=== PATIENT | male | born 1980 ===

== ENCOUNTER 2016-12-13 02:30 | Emergency (ER) | payer BC ==
[2016-12-13] MEDS ORDERED: Alum Hydrox/Mag Hydrox/Simeth 15 ML, Metoclopramide 5 MG, Lidocaine 2% 5 ML PO ONE ×3 (02:42)
--- NOTE | 2016-12-13 02:44 | EDM.PDOC ---
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 Review of systems: As per history of present illness and below otherwise all systems reviewed and negative. Past medical history: As per history of present illness and as reviewed below otherwise noncontributory. Surgical history: As per history of present illness and as reviewed below otherwise noncontributory. Social history: No reported history of drug or alcohol abuse. Family history: As per history of present illness and as reviewed below otherwise noncontributory. Physical exam: HEENT: Atraumatic, normocephalic, pupils reactive, negative for conjunctival pallor or scleral icterus, mucous membranes moist, throat clear, neck supple, nontender, trachea midline. Lungs: Clear to auscultation, breath sounds equal bilaterally, chest nontender. Heart: S1S2, regular, negative for clicks, rubs, or JVD. Abdomen: Soft, nondistended, nontender. Negative for masses or hepatosplenomegaly. Negative for costovertebral tenderness. Pelvis: Stable nontender. Genitourinary: Deferred. Rectal: Deferred. Extremities: Atraumatic, negative for cords or calf pain. Neurovascular unremarkable. Neuro: Awake, alert, oriented. Cranial nerves II through XII unremarkable. Cerebellum unremarkable. Motor and sensory unremarkable throughout. Exam nonfocal. Diagnostics: CBC CMP PT/INR chest x-ray EKG Therapeutics: GI cocktail Protonix 40 mg by mouth Impression: #1 epigastric pain #2 back pain #3 history of avascular necrosis right hip Definitive disposition and diagnosis as appropriate pending reevaluation and review of above. Middle Back Pain Score (Numeric/FACES): 6 ED ROS GENERAL - Review of Systems Review Of Systems: ROS reveals no pertinent complaints other than HPI. ED EXAM, GENERAL - Physical Exam Exam: See Below (See dictation) Course - Vital Signs Last Recorded V/S: Last Vital Signs Temp 35.9 C 12/13/16 02:32 Pulse 99 12/13/16 02:32 Resp 20 12/13/16 02:32 BP 151/94 H 12/13/16 02:32 Pulse Ox 99 12/13/16 02:32 Departure - Departure Time of Disposition: 02:42 Disposition: Home, Self-Care 01 Condition: Good Clinical Impression: Epigastric abdominal pain, Back pain - Discharge Information Referrals: PCP,None [Primary Care Provider] - Additional Instructions: The following information is given to patients seen in the emergency department who are being discharged to home. This information is to outline your options for follow-up care. We provide all patients seen in our emergency department with a follow-up referral. The need for follow-up, as well as the timing and circumstances, are variable depending upon the specifics of your emergency department visit. If you don't have a primary care physician on staff, we will provide you with a referral. We always advise you to contact your personal physician following an emergency department visit to inform them of the circumstance of the visit and for follow-up with them and/or the need for any referrals to a consulting specialist. The emergency department will also refer you to a specialist when appropriate. This referral assures that you have the opportunity for followup care with a specialist. All of these measure are taken in an effort to provide you with optimal care, which includes your followup. Under all circumstances we always encourage you to contact your private physician who remains a resource for coordinating your care. When calling for followup care, please make the office aware that this follow-up is from your recent emergency room visit. If for any reason you are refused follow-up, please contact the [facility] emergency department at and asked to speak to the emergency department charge nurse. Follow-up primary medical doctor 1-2 days Protonix as prescribed return as needed as discussed
[2016-12-13] MEDS ORDERED: Pantoprazole 40 MG Tab.CR PO SCH (02:45)
[2016-12-13 03:46] VITALS: BP 139/90
--- NOTE | 2016-12-13 09:55 | CR ---
EXAM DATE: 12/13/16 PATIENT'S AGE: 36 Patient: KWADWO LORENZO Facility: [place], [place] Site . Site : [id number] Study: XRay Chest [id number]/[id number] 3:14:36 AM Ordering Physician: Rowdy Boo Final Report: INDICATION: EPIGASTRIC PAIN MID BACK PAIN TECHNIQUE: Chest radiograph 1 view COMPARISON: None FINDINGS: The study is moderately limited by body habitus. Cardiovascular and mediastinum: The cardiac silhouette is normal in appearance and size. Mediastinum is within normal limits. Lungs and pleural space: Both lungs are unremarkable in appearance. No sign of pleural effusion. No pneumothorax is seen. Bones and soft tissues: No significant findings. IMPRESSION: 1. No acute cardiopulmonary disease seen. Dictated by: Darren Espinal MD @ 12/13/2016 03:17:10 (Electronic Signature) Report Signed by Proxy. SHEY
== END 2016-12-13 03:45 | disposition home or self-care (01) ==
LOC: MW.ED 02:30
DX: R10.13 Epigastric pain (principal); M54.6 Pain in thoracic spine; Z87.39 Personal history of other diseases of the musculoskeletal system and connective tissue
CPT/HCPCS: 36415; 71010; 80053; 82553; 83690; 84484; 85025; 85610; 93005; 99284; A9270

== ENCOUNTER 2016-12-26 08:00 | Inpatient (IN) | payer BC ==
[2016-12-26] MEDS ORDERED: Lidocaine 2% 5 ML SDV ONE ×3 (09:00→11:45)
[2016-12-26] MEDS ORDERED: Propofol 200 MG/20 ML SDV ONE ×2 (09:00→09:24)
[2016-12-26] MEDS ORDERED: fentaNYL 100 MCG/2 ML SDV ONE ×2 (09:24→13:28)
[2016-12-26] MEDS ORDERED: Midazolam 1 MG/ML 2 ML SDV ONE (09:24)
[2016-12-26] MEDS ORDERED: Succinylcholine/Normal Saline 200 MG/10 ML Syringe ONE (09:31)
[2016-12-26] MEDS ORDERED: Rocuronium 10 MG/ML 10 ML Syringe ONE (09:31)
[2016-12-26] MEDS ORDERED: Ondansetron 4 MG/2 ML SDV ONE (09:31)
[2016-12-26] MEDS ORDERED: Neostigmine Methylsulfate 1 MG/ML 5 ML Syringe ONE (09:31)
[2016-12-26] MEDS ORDERED: ePHEDrine 50 MG/ML SDV ONE (09:40)
[2016-12-26] MEDS ORDERED: ceFAZolin 2 GM in Premix Bag 1 BAG IV ONE (12:00)
--- NOTE | 2016-12-26 12:09 | PCM.PREANE ---
Preanesthetic Assessment - Procedure Proposed Procedure: Right anterior hip arthroplasty due to AVN - Anesthesia/Transfusion/Family Hx Anesthesia History: Prior Anesthesia Without Reaction Family History of Anesthesia Reaction: No Transfusion History: No Prior Transfusion(s) Intubation History: Unknown - Review of Systems General: No Symptoms, Other (obesity) Pulmonary: No Symptoms, Other (possible sleep apnea) Cardiovascular: No Symptoms, Other (PVCs on prior exams) Gastrointestinal: Other (GERD - uses omprozole) Neurological: Gait Disturbance (due to right hip pain) Other: Reports: None - Physical Assessment NPO Status Date: 12/25/16 NPO Status Time: 23:00 Height: 6 ft 6 in Weight: 370 lb ASA Class: 3 Mental Status: Alert & Oriented x3 Airway Class: Mallampati = 1 Dentition: Reports: Normal Dentition ROM/Head Extension: Full Lungs: Clear to Auscultation, Normal Respiratory Effort Cardiovascular: Regular Rate (by right pulse), Regular Rhythm, No Murmurs - Allergies Allergies/Adverse Reactions: Allergies Allergy/AdvReac Type Severity Reaction Status Date / Time morphine Allergy lowers BP Verified 12/24/16 08:06 - Blood Blood Available: Yes Product(s) Available: PRBC (T and S) - Acknowledgements Anesthesia Type Planned: General Anesthesia (possible due to OAD), Spinal (w sedation) Pt an Appropriate Candidate for the Planned Anesthesia: Yes Alternatives and Risks of Anesthesia Discussed w Pt/Guardian: Yes Pt/Guardian Understands and Agrees with Anesthesia Plan: Yes PreAnesthesia Questionnaire Cardiovascular History: Reports: Arrhythmia Gastrointestinal History: Reports: Other (See Below) Other Gastrointestinal History: hx epigastric discomfort caused from taking diclofenac, taking omeprazole for this which has taken care of it Genitourinary History: Reports: Other (See Below) Other Genitourinary History: hematuria Musculoskeletal History: Reports: Other (See Below) Other Musculoskeletal History: avascular necrosis of hip Endocrine/Metabolic History: Reports: Obesity/BMI 30+ - Past Surgical History HEENT Surgical History: Reports: Other (See Below) Other HEENT Surgeries/Procedures: ear surgery - SUBSTANCE USE Smoking Status *Q: Never Smoker Tobacco Use Within Last Twelve Months: No Second Hand Smoke Exposure: No Recreational Drug Use History: No - HOME MEDS Home Medications: Home Meds Acetaminophen with Codeine [Tylenol with Codeine #3 Tablet] 1 tab PO TID PRN 03/01 [History] Omeprazole 20 mg PO DAILY 12/24/16 [History] - CURRENT (IN HOUSE) MEDS Current Meds: Current Medications Cefazolin Sodium/Dextrose 2 gm (/ Premix) 50 mls @ 50 mls/hr IV ONETIME ONE Stop: 12/26/16 12:59 Lactated Ringer's (Ringers, Lactated) 1,000 mls @ 100 mls/hr IV ASDIRECTED KESHAV Discontinued Medications Ephedrine Sulfate (Ephedrine Sulfate) Confirm Administered Dose 100 mg .ROUTE .STK-MED ONE Stop: 12/26/16 09:41 Fentanyl (Sublimaze) Confirm Administered Dose 300 mcg .ROUTE .STK-MED ONE Stop: 12/26/16 09:25 Glycopyrrolate () Confirm Administered Dose 1 mg .ROUTE .STK-MED ONE Stop: 12/26/16 09:32 Lidocaine (Xylocaine-Mpf 2%) Confirm Administered Dose 5 ml .ROUTE .STK-MED ONE Stop: 12/26/16 09:01 Lidocaine (Xylocaine-Mpf 2%) Confirm Administered Dose 10 ml .ROUTE .STK-MED ONE Stop: 12/26/16 09:25 Lidocaine (Xylocaine-Mpf 2%) Confirm Administered Dose 5 ml .ROUTE .STK-MED ONE Stop: 12/26/16 11:46 Midazolam HCl (Versed 1 Mg/Ml) Confirm Administered Dose 2 mg .ROUTE .STK-MED ONE Stop: 12/26/16 09:25 Neostigmine Methylsulfate (Neostigmine) Confirm Administered Dose 5 mg .ROUTE .STK-MED ONE Stop: 12/26/16 09:32 Ondansetron HCl (Zofran) Confirm Administered Dose 8 mg .ROUTE .STK-MED ONE Stop: 12/26/16 09:32 Propofol (Diprivan 20 Ml) Confirm Administered Dose 200 mg .ROUTE .STK-MED ONE Stop: 12/26/16 09:01 Propofol (Diprivan 20 Ml) Confirm Administered Dose 400 mg .ROUTE .STK-MED ONE Stop: 12/26/16 09:25 Rocuronium Tunas (Zemuron) Confirm Administered Dose 100 mg .ROUTE .STK-MED ONE Stop: 12/26/16 09:32 Succinylcholine Chloride (Succinylcholine In Ns Pf) Confirm Administered Dose 200 mg .ROUTE .STK-MED ONE Stop: 12/26/16 09:32 Tranexamic Acid (Cyklokapron) 2,000 mg IV ONETIME ONE Stop: 12/26/16 12:01 Tranexamic Acid (Cyklokapron) Confirm Administered Dose 1,000 mg .ROUTE .STK- MED ONE Stop: 12/26/16 10:58
--- NOTE | 2016-12-26 14:47 | PCM.OPNOTE ---
- General Post-Op/Procedure Note Date of Surgery/Procedure: 12/26/16 Operative Procedure(s): right anterior total hip arthroplasty Findings: femoral head collapse Pre Op Diagnosis: right hip avascular necrosis Post-Op Diagnosis: same Anesthesia Technique: General ET Tube, Spinal Primary Surgeon: Josiah Madrid Mai Pathology: femoral head EBL in mLs: 600 Complications: none Condition: Good
[2016-12-26] MEDS ORDERED: Docusate Sodium 100 MG Cap PO PRN (14:48)
[2016-12-26] MEDS ORDERED: Ondansetron 4 MG/2 ML SDV IVPUSH PRN (14:48)
[2016-12-26] MEDS ORDERED: ceFAZolin 2 GM in Premix Bag 1 BAG IV SCH (15:00)
[2016-12-26] MEDS: fentaNYL 100 MCG/2 ML SDV IVPUSH PRN ×2 (15:09→15:14)
--- NOTE | 2016-12-26 15:27 | PCM.POSTAN ---
POST ANESTHESIA ASSESSMENT - MENTAL STATUS Mental Status: Alert, Oriented - VITAL SIGNS Pulse Rate: 58 SaO2: 96 Resp Rate: 18 Blood Pressure: 142/93 Temperature: 36.5 F - RESPIRATORY Respiratory Status: Respiratory Rate WNL, Airway Patent, O2 Saturation Stable, Supplemental Oxygen - CARDIOVASCULAR CV Status: Pulse Rate WNL, Blood Pressure Stable - GASTROINTESTINAL GI Status: No Symptoms - PAIN Pain Score: 3 - POST OP HYDRATION Hydration Status: Adequate & Stable (ok to discharge from PACU)
[2016-12-26] MEDS: HYDROmorphone 2 MG/ML Syringe IVPUSH PRN ×2 (16:10→20:24)
[2016-12-26] MEDS: Lactated Ringers 1,000 ML IV SCH (16:15)
--- NOTE | 2016-12-26 16:28 | CR ---
EXAMINATION: Right hip HISTORY: Total hip arthroplasty COMPARISON: 12/04/2016 TECHNIQUE: 3 fluoroscopic images provided FINDINGS/IMPRESSION: Operative control films demonstrate placement of a right total hip hardware in g ood position and alignment.
[2016-12-26] MEDS: ceFAZolin 2 GM in Premix Bag 1 BAG IV SCH (20:01)
[2016-12-26] MEDS: Aspirin 325 MG Tab.EC PO SCH (20:25)
--- NOTE | 2016-12-26 20:54 | OR ---
SURGEON: Jsoiah Daley MD DATE OF PROCEDURE: 12/26/2016 PREOPERATIVE DIAGNOSIS: Right hip avascular necrosis with collapse. POSTOPERATIVE DIAGNOSIS: Right hip avascular necrosis with collapse. OPERATIONS PERFORMED: Right anterior total hip arthroplasty. ANESTHESIA: Spinal and general. COMPLICATIONS: None. ESTIMATED BLOOD LOSS: 600 mL. SPECIMENS: Femoral head. IMPLANTS: Yaron Continuum trabecular metal shell with cluster holes, 64 mm outer diameter, one 6.5 x 30 mm bone screw, Vivacit-E neutral liner, 36 mm inner diameter, Fitmore hip stem uncemented B extended offset, size 10, Biolox delta ceramic femoral head 36 mm diameter, zero neck length. INDICATIONS: The patient is a 36-year-old male with avascular necrosis with cysts in the acetabulum as well as beginning of collapse of the femoral head. He understands the risks, benefits, complications of procedure including but not limited to infection, neurovascular injury, continued pain, DVT, PE, stroke, VT, , leg- length discrepancy, fracture, dislocation, and he wished to proceed. PROCEDURE IN DETAIL: The patient was seen in preoperative area. Operative site was marked with the patient. He was transferred to the operating room, where spinal anesthetic was given. He was placed supine on the Márquez table and general anesthesia was induced. Endotracheal tube was placed. He received preoperative antibiotics, Ancef, and also 2 g of TXA. Legs were placed in the leg bars with a narrow perineal post and the right hip was prepped and draped in sterile fashion using alcohol followed by ChloraPrep with Ioban covering. A formal time-out was taken, identifying the correct patient, procedure, and extremity. A 15 cm incision starting just lateral to the ASIS going obliquely down to the femur was made. Dissection was carried down to the subcutaneous tissues. The patient was very large about 6 feet 6 inches and 370 pounds. Fascia overlying the TFL was opened and the interval between TFL and sartorius and deep between the abductors and rectus were opened. Anterior vessels were coagulated. The vastus lateralis fascia was opened. The capsule was held and tagged with FiberWire and retractors were placed deep in the hip. The neck was cut with saddle region to 1 cm above the lesser trochanter and the head was removed. So attached to the ligamentum teres and was very difficult to remove. Anterior and posterior retractors were placed. The inferior capsule was released. The iliopsoas tendon was left alone. The femoral head was found to have collapse in the central weightbearing area and was starting to collapse and acetabulum did have a labral tearing in beginning of chondromalacia of the weightbearing aspect of the acetabulum. The labrum was removed as well as the pulvinar. Then, the head measured about 58 mm and sequential reaming from 57 up to 63 mm was made under fluoroscopic control going slightly superior medial and then Continuum trabecular shell with cluster holes was impacted after cleaning the hip out under fluoroscopic control after planing the bed to make sure it was level, it was impacted in 10 degrees of anteversion and 40 degrees of abduction with an excellent press fit. Once straight superior bone screw was placed due to some small uncovering posterior laterally. Then, the neutral liner was impacted. Attention was then paid to the femur leg, was externally rotated, adducted, and extended. The superior capsule obturator internus and piriformis were released. The central canal finder was utilized. The hip was sequentially broached up to size B 10 and following the mentasta version it was trial reduced with a B extended offset based on preoperative templating with a zero neck length. Printed overlay technique showed equal leg length and offset compared to the opposite side. The hip was then dislocated. The B extended offset size 10 stem was impacted following the mentasta version. It was once again trialed at this time with a +3.5 neck length. This showed it was slightly long and so it dislocated in a zero neck, 36 mm diameter, head was impacted. When the hip was relocated, there was no Shuck and was stable range of motion. The 2 tag sutures were tied together. Wound was thoroughly irrigated. Fascia was closed with #1 Vicryl. The fat layer with #1 Vicryl. Subcutaneous tissues with 2-0 STRATAFIX and skin with 4-0 Monocryl. Dermabond tape and an Aquacel were placed. The patient was extubated in the operative room and transferred to recovery room in stable condition. Sponge and needle counts were correct at the end of the case. There were no complications. PLAN: The patient will follow up postoperative rehab protocol, taking aspirin for DVT prophylaxis. WALLY / TANVI /[id number]
[2016-12-26] MEDS: Acetaminophen/HYDROcodone 325-7.5 MG Tab PO PRN (22:59)
[2016-12-27] MEDS: Lactated Ringers 1,000 ML IV SCH (02:17)
[2016-12-27] MEDS: ceFAZolin 2 GM in Premix Bag 1 BAG IV SCH ×2 (03:45→11:11)
[2016-12-27] MEDS: HYDROmorphone 2 MG/ML Syringe IVPUSH PRN (03:47)
[2016-12-27] MEDS: Acetaminophen/HYDROcodone 325-7.5 MG Tab PO PRN ×3 (04:18→13:35)
[2016-12-27] MEDS ORDERED: Sodium Chloride 0.9% 2.5 ML Syringe FLUSH PRN (07:23)
[2016-12-27] MEDS ORDERED: Sodium Chloride 0.9% 10 ML Syringe FLUSH PRN (07:23)
--- NOTE | 2016-12-27 07:23 | PCM.SN ---
- Free Text/Narrative Note: S: He is overall doing very well. He states that his pain is better before surgery he has some soreness in the thigh. He is ambulating and doing well. He is tolerating by mouth with no other complaints. O: afebrile vital signs stable dressing clean/dry/intact. normal motor and sensation distal with palpable pedal pulse minimal swelling in thigh, none distal hgb 11.4 A/P: POD #1 right MITALI - full weight bearing, PT - oral pain meds - aspirin for DVT prophylaxis, SCDs in hospital - Home today
--- NOTE | 2016-12-27 07:25 | PCM.DCSUM1 ---
Discharge Summary - Hospital Course Brief History: Patient was admitted for elective right hip replacement for avascular necrosis - Discharge Data Discharge Date: 12/27/16 Discharge Disposition: Home, Self-Care 01 Condition: Good - Patient Summary/Data Operative Procedure(s) Performed: right anterior total hip arthroplasty Consults: Consultations 12/26/16 14:48 PT Evaluation and Treatment [CONS] Routine Hospital Course: Patient was admitted and underwent uneventful total hip arthroplasty. Postoperatively he was admitted to the floor, his pain was controlled, his diet was advanced, and he participated in therapy. He did well postoperatively and was discharged home on postoperative day #1 with aspirin for DVT prophylaxis. - Patient Instructions Diet: Usual Diet as Tolerated Activity: Apply Ice, Full Weight Bearing Driving, Other: May drive in 2 weeks Showering/Bathing: August Shower Wound/Incision Care: Do NOT Change Dressing Notify Provider of: Fever, Swelling and Redness, Drainage - Discharge Plan Home Medications: Home Meds Acetaminophen with Codeine [Tylenol with Codeine #3 Tablet] 1 tab PO TID PRN 03/01 [History] Omeprazole 20 mg PO DAILY 12/24/16 [History] - Discharge Summary/Plan Comment DC Time >30 min.: No - Patient Data Vitals - Most Recent: Last Vital Signs Temp 36.8 C 12/27/16 03:59 Pulse 75 12/27/16 03:59 Resp 20 12/27/16 03:59 BP 142/80 H 12/27/16 03:59 Pulse Ox 99 12/27/16 03:59 Weight - Most Recent: 167.829 kg I&O - Last 24 hours: Intake & Output 12/26/16 12/27/16 12/27/16 22:59 06:59 14:59 Intake Total 2200 2250 Output Total 1470 Balance 2200 780 Lab Results - Last 24 hrs: Laboratory Results - last 24 hr 12/27/16 Range/Units 04:27 WBC 10.14 (4.0-11.0) K/uL RBC 3.93 L (4.50-5.90) M/uL Hgb 11.4 L (13.0-17.0) g/dL Hct 34.6 L (38.0-50.0) % MCV 88.0 (80.0-98.0) fL MCH 29.0 (27.0-32.0) pg MCHC 32.9 (31.0-37.0) g/dL RDW Std Deviation 43.7 (28.0-62.0) fl RDW Coeff of Petar 14 (11.0-15.0) % Plt Count 180 (150-400) K/uL MPV 10.80 (7.40-12.00) fL Nucleated RBC % 0.0 /100WBC Nucleated RBCs # 0 K/uL Med Orders - Current: Current Medications Hydrocodone Bitart/Acetaminophen (Turner 325-7.5 Mg) 1 tab PO Q4H PRN PRN Reason: Pain Last Admin: 12/27/16 04:18 Dose: 1 tab Aspirin (Ecotrin) 325 mg PO BID KESHAV Last Admin: 12/26/16 20:25 Dose: 325 mg Docusate Sodium (Colace) 100 mg PO BID PRN PRN Reason: Constipation Fentanyl (Sublimaze) 50 mcg IVPUSH Q5M PRN PRN Reason: Pain (severe 7-10) Stop: 12/27/16 12:44 Last Admin: 12/26/16 15:14 Dose: 50 mcg Hydromorphone HCl (Dilaudid) 1 - 3 mg IVPUSH Q2H PRN PRN Reason: Pain Last Admin: 12/27/16 03:47 Dose: 2 mg Lactated Ringer's (Ringers, Lactated) 1,000 mls @ 100 mls/hr IV ASDIRECTED KESHAV Last Admin: 12/27/16 02:17 Dose: 100 mls/hr Cefazolin Sodium/Dextrose 2 gm (/ Premix) 50 mls @ 100 mls/hr IV Q8H [facility] Stop: 12/27/16 12:29 Last Admin: 12/27/16 03:45 Dose: 100 mls/hr Ondansetron HCl (Zofran) 4 mg IVPUSH Q6H PRN PRN Reason: Nausea/Vomiting Last Admin: 12/26/16 16:10 Dose: 4 mg Sodium Chloride (Saline Flush) 10 ml FLUSH ASDIRECTED PRN PRN Reason: Keep Vein Open Sodium Chloride (Saline Flush) 2.5 ml FLUSH ASDIRECTED PRN PRN Reason: Keep Vein Open Discontinued Medications Ephedrine Sulfate (Ephedrine Sulfate) Confirm Administered Dose 100 mg .ROUTE .STK-MED ONE Stop: 12/26/16 09:41 Fentanyl (Sublimaze) Confirm Administered Dose 300 mcg .ROUTE .STK-MED ONE Stop: 12/26/16 09:25 Fentanyl (Sublimaze) Confirm Administered Dose 200 mcg .ROUTE .STK-MED ONE Stop: 12/26/16 13:29 Glycopyrrolate () Confirm Administered Dose 1 mg .ROUTE .STK-MED ONE Stop: 12/26/16 09:32 Cefazolin Sodium/Dextrose 2 gm (/ Premix) 50 mls @ 50 mls/hr IV ONETIME ONE Stop: 12/26/16 12:59 Last Admin: 12/26/16 16:27 Dose: Not Given Cefazolin Sodium/Dextrose 2 gm (/ Premix) 50 mls @ 100 mls/hr IV Q8H KESHAV Stop: 12/27/16 07:29 Last Admin: 12/26/16 17:33 Dose: Not Given Lidocaine (Xylocaine-Mpf 2%) Confirm Administered Dose 5 ml .ROUTE .ST-MED ONE Stop: 12/26/16 09:01 Lidocaine (Xylocaine-Mpf 2%) Confirm Administered Dose 10 ml .ROUTE .ST-MED ONE Stop: 12/26/16 09:25 Lidocaine (Xylocaine-Mpf 2%) Confirm Administered Dose 5 ml .ROUTE .ST-MED ONE Stop: 12/26/16 11:46 Midazolam HCl (Versed 1 Mg/Ml) Confirm Administered Dose 2 mg .ROUTE .ST-MED ONE Stop: 12/26/16 09:25 Neostigmine Methylsulfate (Neostigmine) Confirm Administered Dose 5 mg .ROUTE .ST-MED ONE Stop: 12/26/16 09:32 Ondansetron HCl (Zofran) Confirm Administered Dose 8 mg .ROUTE .ST-MED ONE Stop: 12/26/16 09:32 Propofol (Diprivan 20 Ml) Confirm Administered Dose 200 mg .ROUTE .STK-MED ONE Stop: 12/26/16 09:01 Propofol (Diprivan 20 Ml) Confirm Administered Dose 400 mg .ROUTE .STK-MED ONE Stop: 12/26/16 09:25 Rocuronium Irma (Zemuron) Confirm Administered Dose 100 mg .ROUTE .STK-MED ONE Stop: 12/26/16 09:32 Succinylcholine Chloride (Succinylcholine In Ns Pf) Confirm Administered Dose 200 mg .ROUTE .STK-MED ONE Stop: 12/26/16 09:32 Tranexamic Acid (Cyklokapron) 2,000 mg IV ONETIME ONE Stop: 12/26/16 12:01 Last Admin: 12/26/16 16:27 Dose: Not Given Tranexamic Acid (Cyklokapron) Confirm Administered Dose 1,000 mg .ROUTE .STK- MED ONE Stop: 12/26/16 10:58 *Q Meaningful Use (DIS) - VTE *Q VTE Criteria *Q: - Stroke *Q Stroke Criteria *Q: - AMI *Q AMI Criteria *Q:
[2016-12-27] MEDS: Aspirin 325 MG Tab.EC PO SCH (09:03)
--- NOTE | 2016-12-27 09:29 | PCM48HPAN ---
Post Anesthesia Note - EVALUATION WITHIN 48HRS OF ANESTHETIC Vital Signs in Normal Range: Yes Patient Participated in Evaluation: Yes Respiratory Function Stable: Yes Airway Patent: Yes Cardiovascular Function Stable: Yes Hydration Status Stable: Yes Pain Control Satisfactory: Yes Nausea and Vomiting Control Satisfactory: Yes Mental Status Recovered: Yes - COMMENTS/OBSERVATIONS Free Text/Narrative:: full sensation in legs bilaterally
[2016-12-27 13:42] VITALS: BP 129/76
== END 2016-12-27 15:25 | disposition home or self-care (01) | DRG 301 ==
LOC: MW.OB 11:00 → MW.MS 12:31
PROVIDERS: ADMIT Orthopaedic Surgery; ATTEND Orthopaedic Surgery
PROC: 0SR903A Replacement of Right Hip Joint with Ceramic Synthetic Substitute, Uncemented, Open Approach (ICD-10-PCS; principal; 2016-12-26)
DX: M87.9 Osteonecrosis, unspecified (principal); K21.9 Gastro-esophageal reflux disease without esophagitis; Z79.899 Other long term (current) drug therapy
CPT/HCPCS: 01214; 36415; 76000; 76000-26; 85027; 88305; 88311; 97110-GP; 97161-GP; 97530-GP; A9270-GY; C1713; C1776; J0690; J1170; J2250; J2405; J2704; J3010; J7120